=== PATIENT | male | born 1960 | race Caucasian/White ===

== ENCOUNTER → 2019-05-23 | Outpatient (RCR) | payer BC | LOC: PT 05-19 08:05 | PROVIDERS: ATTEND Internal Medicine | DX: M54.16 Radiculopathy, lumbar region (principal); M54.5 Low back pain ==

== ENCOUNTER 2019-06-02 14:47 | Outpatient (RCR) | payer BC | END 2019-06-22 | LOC: PT 14:47 | PROVIDERS: ATTEND Internal Medicine | DX: M54.16 Radiculopathy, lumbar region (principal) ==

== ENCOUNTER 2019-11-13 16:41 | Emergency (ER) | payer BC ==
[~2019-11-13] VITALS: Ht 177.8 cm; Wt 81.2 kg
--- NOTE | 2019-11-13 17:05 | Emergency Department Note ---
History of Present Illnes History of Present Illness Chief Complaint: c/o test analyst bowel movement for 5 days and inability to urinate today History of Present Illness This is a 59 year old male . Historian: Patient, Significant Other Arrival Mode: Car Additional Treatment DINING ROOM COORDINATOR: er today but no reports avail. for review Onset (how long ago): day(s) (5 days constipation last voided urine this AM on awakening. ) Quality: bloated abdomen Radiation: Reports non-radiation Severity: moderate Onset quality: gradual Duration (how long): day(s) (few) Progression: worsening Relieving factors: none Exacerbating factors: none Treatments prior to arrival: other (givem mag citrate and a fleets enema by prior ER) Previous service: medications given Past Medical/Family History Physician Review I have reviewed the patient's past medical and family history. Any updates have been documented here. Past Medical History Recent Fever: No Clinical Suspicion of Infectio: No New/Unexplained Change in Ment: No Past Medical History: None Other Surgery: no abdominal surgery Social History Smoking Cessation: Never Smoker Counseling Performed: No Alcohol Use: Occasional Any Illegal Drug Use: No TB Exposure/Symptoms: No Physically hurt or threatened: No Other Any Pre-Existing Lines (PICC,: No Is patient up to date on immun: No Review of Systems Review of Systems Constitutional: Reports no symptoms EENTM: Reports no symptoms Cardiovascular: Reports no symptoms Respiratory: Reports no symptoms Gastrointestinal: Reports abdominal pain, Reports constipation Genitourinary: Reports no symptoms Musculoskeletal: Reports no symptoms Integumentary: Reports no symptoms Neurological: Reports no symptoms Psychological: Reports no symptoms Endocrine: Reports no symptoms Hematological/Lymphatic: Reports no symptoms Review of other systems: All other systems negative Physical Exam Related Data Allergies: Uncoded Allergies: steroids (Adverse Reaction, Unknown, hiccups for weeks (vagus reaction), 11/13/19) Physical Exam CONSTITUTIONAL Constitutional: Present well-developed, Present well-nourished HENT HENT: Present normocephalic, Present atraumatic EYES Eyes: Reports PERRL, Reports conjunctivae normal, Reports EOM normal, Reports lids normal NECK Neck: Present ROM normal, Present supple PULMONARY Pulmonary: Present effort normal, Present breath sounds normal CARDIOVASCULAR Cardiovascular: Present regular rhythm, Present heart sounds normal, Present intact distal pulses, Present capillary refill normal, Present normal rate GASTROINTESTINAL Abdominal: Present soft, Present bowel sounds normal, Present distension (mild), Present tender, Present mass (none), Present hernia (none); Absent guarding (none), Absent rebound (none) GENITOURINARY Genitourinary: Present penis normal, Present guaiac result (negative and supplier quality specialist done. large amount of stool in rectal vault. Unable to evaluate the prostate secondary to large amount of stool) SKIN Skin: Present warm, Present dry MUSCULOSKELETAL Musculoskeletal: Present ROM normal NEUROLOGICAL Neurological: Present alert, Present oriented x 3, Present DTRs normal, Present no gross motor or sensory deficits PSYCHOLOGICAL Psychological: Present mood/affect normal, Present behavior normal, Present thought content normal, Present judgement normal Results Laboratory Laboratory umanzor cath 1100 cc out of clear yellow urine Lab results reviewed: Yes Laboratory comments u/a dip wnl occult blood negative cbc sig for wbc 12.4 with 84 segs chem glucose 156 and creat 1.3 mildly elevated OW WNL Diagnostics Tests Diagnostic test(s) reviewed: Yes Diagnostic comments ct moderate stool burden atrophic left kidney which pt knows about Assessment & Plan Medical Decision Making MDM constipation and urinary retention. resolved with folety catheter laxatives given by other Er to help resolve the constipatio. Low grade temp of 100 noted by nurse on repeat temp blood cultures will be drawn and urine will be sent for a culture pt will continue umanzor catheter and told to follow up with PMD within 48 hours Reassessment Reassessment feeling much better Assessment & Plan Final Impression: (1) Constipation (2) Urinary retention Depart Disposition: HOME, SELF-FDC Meds Active Scripts Levofloxacin (LEVOFLOXACIN) 250 Mg Tablet, 500 MG PO DAILY for fever for 10 Days, #10 TAB Prov:RASHMI BRIDGES MD 11/13/19 Medications in the ED pt told to take an addtional bottle of mag citratate in 12 hours if no bowel movement . also to take colace as prescribed previosly RASHMI BRIDGES MD Nov 13, 2019 17:05
--- NOTE | 2019-11-13 18:18 | Diagnostic Imaging Report ---
EXAM: CT Abdomen and Pelvis WITHOUT contrast INDICATION: abdominal pain and constipation COMPARISON: None. TECHNIQUE: Abdomen and pelvis were scanned utilizing a multidetector helical scanner from the lung base to the pubic symphysis without administration of IV contrast. Absence of intravenous contrast decreases sensitivity for detection of focal lesions and vascular pathology. Coronal and sagittal reformations were obtained. Routine protocol was performed. IV CONTRAST: None ORAL CONTRAST: None COMPLICATIONS: None RADIATION DOSE: Total DLP: 596.18 mGy*cm Estimated effective dose: (DLP x 0.015 x size factor) mSv CTDIvol has been reviewed. It is below the limits set by the Radiation Protocol Committee (RPC). Dose modulation, iterative reconstruction, and/or weight based adjustment of the mA/kV was utilized to reduce the radiation dose to as low as reasonably achievable. FINDINGS: LINES and TUBES: Russell catheter and placed. LOWER THORAX: Unremarkable HEPATOBILIARY: No focal hepatic lesions. No biliary ductal dilation. GALLBLADDER: No radio-opaque stones or sludge. No wall thickening. SPLEEN: No splenomegaly. PANCREAS: No focal masses or ductal dilatation. ADRENALS: No adrenal nodules KIDNEYS/URETERS: Atrophic left kidney. There is contrast material within the collecting system. No hydronephrosis. No cystic or solid mass lesions. No stones. GI TRACT: No abnormal distention, wall thickening, or evidence of bowel obstruction. Appendix is normal. There is moderate stool burden throughout the colon. PELVIC ORGANS/BLADDER: The urinary bladder is decompressed. LYMPH NODES: No lymphadenopathy. VESSELS: Unremarkable. PERITONEUM / RETROPERITONEUM: No free air or fluid. BONES: There are degenerative changes in the spine. SOFT TISSUES: Unremarkable. IMPRESSION: 1. No acute intra-abdominal findings to explain the patient's symptoms were identified. 2. Moderate stool burden throughout the colon which can present clinically as constipation. Signed by: Aleksandr Orr MD on 11/13/2019 6:15 PM
--- NOTE | 2019-11-13 18:27 | NUR ---
Leg bag placed and pt and instructed on use of leg bag. Pt abd is now less distended and painful.
[2019-11-13] MEDS ORDERED: LEVOFLOXACIN250 MG PO (18:39)
[2019-11-13 18:40] VITALS: BP 127/69
--- OUTSIDE RECORDS SUMMARY | 2019-11-19 14:59 | XMS REPORT | Continuity of Care Document ---
Author Author [facility] t Organization [facility] Address [address] [place] [address] Phone Unavailable Care Team Providers Care C Software Engineer Name Role Phone DENEEN CARRILLO, MD M[facility]RISON PCP RASHMI BRIDGES Unavailable Payers Payer Name Policy Type Policy Number Effective Date [facility] Date [id number] 00:[facility]00 [facility] Problems Condition Name Condition Details Condition Category Status Onset Date Resolution Date Last Treatment Date Treating Clinician Comments Source Retention of urine Problem Active [facility] Constipation Problem Active [facility] Allergies, Adverse Reactions, Alerts Allergy Name Allergy Type Status Severity Reaction(s) Onset Date Inacti ve Date Treating Clinician Comments Source prednisone DA Active U 2019-11-13 00:00:00 [facility] steroids Propensity to adverse reactions Active hiccups for weeks (vagus reaction) 2019-11-13 00:00:00 [facility] No Known Contrast Allergies DA Active U 2007-04-15 00:00: 00 [facility] No Known Drug Allergies DA Active U 2007-04-15 00:00:00 [facility] No Known Food Allergies DA Active U 2007-04-15 00:00:00 [facility] No Known Other Allergies DA Active U 2007-04-15 00:00:00 [facility] Social History Social Habit Start Date Stop Date Quantity Comments Source Sex Assigned At 1960 00:00:00 1960 00:00:00 Male [facility] Medications Ordered Medication Name Filled Medication Name Start Date Stop Da te Current Medication? Ordering Clinician Indication Dosage Frequency Signature (SIG) Comments Components Source Levofloxacin Levofloxacin 2019-11-13 18:39:00 Yes 500 Daily for Fever [facility] Vital Signs Vital Name Observation Time Observation Value Comments Source Body Temperature 2019-11-13 18:40:00 100.0 [degF] [facility] Weight 2019-11-13 16:46:00 179.06 [lb_av] [facility] BMI (Body Mass Index) 2019-11-13 16:46:00 25.7 kg/m2 [facility] Procedures This patient has no known procedures. Plan of Care Planned Activity Planned Date Details Comments Source Instructions Constipation - Adult [facility] Instructions Russell Catheter Care [facility] Instructions Urinary Retention [facility] Encounters Start Date/Time End Date/Time Encounter Type Admission Type [facility] Care Department Encounter ID Source 2019-11-13 17:00:00 2019-11-13 18:58:00 Departed Emergency Room RASHMI BRIDGES [facility] [id number] [facility] 2019-05-26 14:58:00 2019 23:59:00 Discharged Recurring [facility] [id number] [facility] 2019-05-19 08:05:00 2019-05-23 23:59:00 Discharged Recurring [facility] [id number] [facility] Results Test Description Test Time Test Comments Results Result Comments Source CT ABD/PEL WO CONTRAST-HOPD 2019-11-13 18:09:00 [facility] [address] [place] [address] Patient Name: SANA KENNEDY MR #: [id number] : 1960 Age/Sex: 59/M Req #: [id number] Adm Physician: Ordered by: RASHMI BRIDGES MD Report #: [id number] Location: [facility] Room/Bed: Procedure: [id number] HOPD/CT ABD/PEL WO CONTRAST-HOPD Exam Date: 11/13/19 Exam Time: 1732 REPORT STATUS: Signed EXAM: CT Abdomen and Pelvis WITHOUT contrast INDICATION: abdominal pain and constipation COMPARISON: None. TECHNIQUE: Abdomen and pelvis were scanned utilizing a multidetector helical scanner from the lung base to the pubic symphysis without adm inistration of IV contrast. Absence of intravenous contrast decreases sensitivity for detection of focal lesions and vascular pathology. Coronal and sagittal reformations were obtained. Routine protocol was performed. IV CONTRAST: None ORAL CONTRAST: None COMPLICATIONS: None RADIATION DOSE: Total DLP: 596.18 mGy*cm Estimated effective dose: (DLP x 0.015 x size factor) mSv CTDIvol has been reviewed. It is below the limits set by the Radiation Protocol Committee (RPC). Dose modulation, iterative reconstruction, and/or weight based adjustment of the mA/kV was utilized to reduce the radiation dose to as low as reasonably achievable. FINDINGS: LINES and TUBES: Russell catheter and placed. LOWER THORAX: Unremarkable HEPATOBILIARY: No focal hepatic lesions. No biliary ductal dilation. GALLBLADDER: No radio-opaque stones or sludge. No wall thickening. SPLEEN: No splenomegaly. PANCREAS: No focal masses or ductal dilatation. ADRENALS: No adrenal nodules KIDNEYS/URETERS: Atrophic left kidney. There is contrast material within the collecting system. No hydronephrosis. No cystic or solid mass lesions. No stones. GI TRACT: No abnormal distention, wall thickening, or evidence of bowel obstruction. Appendix is normal. There is moderate stool burden throughout the colon. PELVIC ORGANS/BLADDER: The urinary bladder is decompressed. LYMPH NODES: No lymphadenopathy. VESSELS: Unremarkable. PERITONEUM / RETROPERITONEUM: No free air or fluid. BONES: There are degenerative changes in the spine. SOFT TISSUES: Unremarkable. IMPRESSION: 1. No acute intra-abdominal findings to explain the patient's symptoms were identified. 2. Moderate stool burden throughout the colon which can present clinically as constipation. Signed by: Herman Long MD on 11/13/2019 6:15 PM Dictated By: HERMAN LONG MD 14 Transcribed By: RICHARD on 11/13/191814 COPY TO: RASHMI BRIDGES MD - CT ABD PELVIS W/CONT 2019-11-13 10:37:00 [place] e: SANA KENNEDY [facility] : 1960 Age/S: 59 / M [address] [facility] Unit #: [id number] Loc: [facility] [place] [address] Phys: Camden Lyons DO Acct: [id number] Dis Date: Status: REG ER PHONE #: [phone] Exam Date: 11/13/2019 1020 FAX #: [phone] Reason: lower abd pain EXAMS: CPT CODE: [id number] CT ABD PELVIS W/CONT 52927 REASON FOR EXAM: lower abd pain EXAM ORDER DATE: 11/13/2019 9:15 AM Ordering MBrittanyDBrittany: Camden Lyons DO PROCEDURE: Axial CT images were acquired through the abdomen/pelvis at 5 mm intervals. Sagittal and coronal reformatted images were generated. Automated exposure control was utilized for this reduction. Phases of contrast: venous and delayed COMPARISON: None FINDINGS: Visualized thorax: Normal Hepatobiliary system: Normal Pancreas: Normal Spleen: Normal Adrenal glands: Normal Genitourinary system: Left kidney is significantly smaller than the right. Remainder of the genitourinary structures are within normal limits Gastrointestinal tract and appendix: Heavy stool burden involving the rectum and sigmoid colon with findings suggestive of fecal impaction. Appendix, stomach, and small bowel are within normal limits Abdominal vascular structures: Normal Peritoneum and retroperitoneum: No free fluid or free air. No omental or mesenteric masses. No abnormal lymph nodes. Musculoskeletal structures and abdominal wall: Mild degenerative changes are present in the spine. There is also levoscoliosis involving the lumbar spine IMPRESSION: PAGE 1 Signed Report (CONTINUED) Name: SANA KENNEDY [facility] : 1960 Age/S: 59 / M [address] [facility] Unit #: [id number] Loc: [place] [address] Phys: Camden Lyons DO Acct: [id number] Dis Date: Status: REG ER PHONE #: [phone] Exam Date: 11/13/2019 1020 FAX #: [phone] Reason: lower abd pain EXAMS: CPT CODE: [id number] CT ABD PELVIS W/CONT 80476 <Continued> Heavy colonic stool burden in the rectum and in the sigmoid colon suggestive of constipation. This may account for the patient's lower abdominal pain. 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 Location: [facility] at 1037 Reported and signed by: Lincoln Nye MD CC: Camden Lyons DO Technologist:Kiera Yo RT(R)(CT) CTDI: DLP: Trnscb Date/Time: 11/13/2019 (1037) [email or web address] Orig Print D/T: S: 11/13/2019 (1040) PAGE 2 Signed Report BASIC METABOLIC PANEL 2019-11-13 10:04:00 Test Item SODIUM (test code = NA) 141 mmol/L 136-145 N POTASSIUM (test code = K) 4.3 mmol/L 3.5-5.1 N CHLORIDE (test code = CL) 106 mmol/L 101-109 N CARBON DIOXIDE (test code = CO2) 29.6 mmol/L 21-32 N ANION GAP (test code = GAP) 10 mmol/L 10-20 N GLUCOSE (test code = GLU) 122 mg/dL 74-106 H BLOOD UREA NITROGEN (test code = BUN) 15 mg/dL 3-21 N GLOMERULAR FILTRATION RATE (test code = GFR) 59 mL/min >=60 Estimated GFR by using Modified MDRD formula.Chronic kidney disease is defined as either kidney damageor GFR <60 mL/min/1.73 m2 for >3 months. CREATININE (test code = CREAT) 1.26 mg/dL 0.55-1.3 N BUN/CREATININE RATIO (test code = BUN/CREA) 11.9 10-20 N CALCIUM (test code = CA) 8.5 mg/dL 8.4-10.2 N HEPATIC FUNCTION [id number] 10:04:00* Test Item Value Reference Range Interpretation Comments TOTAL PROTEIN (test code = PROT) 7.7 g/dL 6.5-8.4 N ALBUMIN (test code = ALB) 3.9 g/dL 3.4-4.8 N GLOBULIN (test code = GLOB) 3.8 G/DL 1-10 N ALBUMIN/GLOBULIN RATIO (test code = A/G) 1.03 RATIO 0.75-1.50 N BILIRUBIN TOTAL (test code = BILT) 0.70 mg/dL 0.0-1.0 N BILIRUBIN DIRECT (test code = BILD) 0.10 mg/dL 0.0-0.30 N SGOT/AST (test code = AST) 24 U/L 6-32 N SGPT/ALT (test code = ALT) 30 U/L 12-78 N N ote: Change in REFERENCE RANGE due to new reagent method. ALKALINE PHOSPHATASE TOTAL (test code = ALKP) 49 U/L 38-126 N [id number] 10:04:00* Test Item Value Reference Range Interpretation Comments LIPASE (test code = LIP) 260 U/L 128-270 N BASIC METABOLIC [id number] 10:02:00* Test Item Value Reference Range Interpretation Comments SODIUM (test code = NA) 141 mmol/L 136-145 N POTASSIUM (test code = K) 4.3 mmol/L 3.5-5.1 N CHLORIDE (test code = CL) 106 mmol/L 101-109 N CARBON DIOXIDE (test code = CO2) 29.6 mmol/L 21-32 N ANION GAP (test code = GAP) 10 mmol/L 10-20 N GLUCOSE (test code = GLU) 122 mg/dL 74-106 H BLOOD UREA NITROGEN (test code = BUN) 15 mg/dL 3-21 N GLOMERULAR FILTRATION RATE (test code = GFR) 59 mL/min >=60 Estimated GFR by using Modified MDRD formula.Chronic kidney disease is defined as either kidney damageor GFR <60 mL/min/1.73 m2 for >3 months. CREATININE (test code = CREAT) 1.26 mg/dL 0.55-1.3 N BUN/CREATININE RATIO (test code = BUN/CREA) 11.9 10-20 N CALCIUM (test code = CA) 8.5 mg/dL 8.4-10.2 N HEPATIC FUNCTION [id number] 10:02:00* Test Item Value Reference Range Interpretation Comments TOTAL PROTEIN (test code = PROT) gram/dL 6.4-8.2 ALBUMIN (test code = ALB) g/dL 3.4-5.0 GLOBULIN (test code = GLOB) g/dL 2.7-4.2 ALBUMIN/GLOBULIN RATIO (test code = A/G) 0.75-1.50 BILIRUBIN TOTAL (test code = BILT) mg/dL 0.2-1.2 BILIRUBIN DIRECT (test code = BILD) mg/dL 0.0-0.20 SGOT/AST (test code = AST) IUnit/L 15-37 SGPT/ALT (test code = ALT) U/L 10-69 ALKALINE PHOSPHATASE TOTAL (test code = ALKP) IUnit/L 45-117 [id number] 10:02:00* Test Item Value Reference Range Interpretation Comments LIPASE (test code = LIP) Unit/L 144-286 CBC W/O [id number] 09:51:00* Test Item Value Reference Range Interpretation Comments WHITE BLOOD CELL (test code = WBC) 5.4 K/mm3 4.5-12.5 N RED BLOOD CELL (test code = RBC) 5.20 mill/mm3 4.0-5.8 N HEMOGLOBIN (test code = HGB) 15.5 gram/dL 13.0-17.5 N HEMATOCRIT (test code = HCT) 44.8 % 42.0-52.0 N MEAN CELL VOLUME (test code = MCV) 86.2 fL 80-98 N MEAN CELL HGB (test code = MCH) 29.8 picogram 27.0-33.0 N MEAN CELL HGB CONCETRATION (test code = MCHC) 34.6 gram/dL 33.0-36. 0 N RED CELL DISTRIBUTION WIDTH (test code = RDW) 11.7 % 11.6-16. 2 N RED CELL DISTRIBUTION WIDTH SD (test code = RDW-SD) 37.8 fL 37 .0-51.0 N PLATELET COUNT (test code = PLT) 225 K/mm3 150-450 N MEAN PLATELET VOLUME (test code = MPV) 8.7 fL 6.7-11.0 N
== END 2019-11-13 18:58 | disposition home or self-care (01) ==
LOC: FSED 17:00
DX: K59.00 Constipation, unspecified (principal); R33.9 Retention of urine, unspecified
CPT/HCPCS: 51700; 74176; 80053; 81003; 82270; 85025; 87040; 87071; 87086; 87205; 99284

== ENCOUNTER → 2020-10-25 | Outpatient (CLI) | payer BC ==
[~2020-10-25] MED LIST: LEVOFLOXACIN250 MG PO
== END ==
LOC: SLEEP 19:42
PROVIDERS: ATTEND Internal Medicine
DX: G47.33 Obstructive sleep apnea (adult) (pediatric) (principal)
CPT/HCPCS: 95811

== ENCOUNTER 2021-12-05 14:58 | Outpatient (RCR) | payer BC | END 2021-12-22 | LOC: PT 14:58 | PROVIDERS: ATTEND Psychiatry & Neurology Neurology | DX: M54.17 Radiculopathy, lumbosacral region (principal); M54.50 Low back pain, unspecified; R20.8 Other disturbances of skin sensation; M62.81 Muscle weakness (generalized) ==

== ENCOUNTER 2021-12-26 06:57 | Outpatient (RCR) | payer BC | END 2022-01-21 | LOC: PT 06:57 | PROVIDERS: ATTEND Psychiatry & Neurology Neurology | DX: M54.17 Radiculopathy, lumbosacral region (principal); M54.50 Low back pain, unspecified; R20.8 Other disturbances of skin sensation; M62.81 Muscle weakness (generalized) ==

== ENCOUNTER → 2024-04-03 | Day surgery (SDC) | payer BC ==
[~2024-04-03] MED LIST changes: +CIALIS5 MG PO; +CRESTOR40 MG PO; +EPHEDRINE SULFATE INJ 50 MG/ML VIAL ONE; +GLUCAGON FOR INJ 1 MG VIAL ONE; +LIDOCAINE HCL 2% LOCAL INJ 5 ML SDV VIAL INJ ONE; +PRISTIQ ER50 MG PO; +PROPOFOL IV EMULSION 10 MG/ML 20 ML VIAL ONE; +PROPOFOL IV EMULSION 50 ML IV ONE; +SODIUM CHLORIDE 0.9% INJ 10 ML VIAL ONE; +VENTOLIN HFA18 GM INH
[2024-04-03] MEDS: LACTATED RINGER'S 1,000 ML ONE (07:10)
[2024-04-03 08:09] LABS: ANION GAP 11.2 mmol/L (8-16); CALCIUM 8.9 mg/dL (8.4-10.2); CREATININE, SERUM 1.06 mg/dL (0.72-1.25); POTASSIUM 4.2 mmol/L (3.5-5.1)
[2024-04-03 09:04] VITALS: TEMP 97.7
[2024-04-03 09:40] VITALS: BP 121/70; PULSE 81; RESP 18; O2SAT 99
== END | disposition home or self-care (01) ==
LOC: OR 05:56
PROVIDERS: ATTEND Internal Medicine Gastroenterology
DX: K59.00 Constipation, unspecified (principal); Z86.0100 Personal history of colon polyps, unspecified; K64.8 Other hemorrhoids; E78.5 Hyperlipidemia, unspecified; F41.9 Anxiety disorder, unspecified; F32.A Depression, unspecified; Z88.8 Allergy status to other drugs, medicaments and biological substances; Z01.810 Encounter for preprocedural cardiovascular examination; Z79.899 Other long term (current) drug therapy
CPT/HCPCS: 36415; 45378; 80048; 93005; J1610; J2003; J2704 ×2; J7121